=== PATIENT | female | born 1965 | race Caucasian/White ===

== ENCOUNTER 2021-09-09 17:51 | Inpatient (IN) ==
[2021-09-09] MEDS ORDERED: HYDROmorphone 2 MG/1 ML VIAL IV STA (21:15)
[2021-09-09] MEDS ORDERED: SODIUM CHLORIDE 0.9% 500 ML IV STA (21:15)
[2021-09-09] MEDS ORDERED: ALUM/MAG/SIMETH/LIDO VISC 1:1 30 ML BOTTLE PO STA (21:15)
[2021-09-09] MEDS ORDERED: PANTOPRAZOLE 40 MG VIAL IV STA (21:15)
[2021-09-09] MEDS ORDERED: ONDANSETRON 4 MG/2 ML VIAL IV STA (21:15)
[2021-09-09 21:44] LABS: Basophils % 0.4 % (0.0-0.8); Eosinophils # 0.3 10*3/uL (0.0-0.87); Eosinophils % 2.9 % (0.00-10.9); Hematocrit 39.1 VOL% (35.7-47.0); Hemoglobin 12.8 GM/DL (12.0-16.0); Immature Granulocytes % 0.3 %; Immature Granulocytes Absolute 0.03 #; Lymphocytes # 2.1 10*3/uL (1.4-4.0); Lymphocytes % 21.4 % (21.3-54.2); Mean Corpuscular HGB Conc 32.7 GM/DL (32-36); Mean Corpuscular Volume 87.9 FL (87-102); Mean Platelet Volume 9.9 FL (9.6-12.0); Monocytes % 8.5 % (1.7-12.7); Neutrophils % 66.5 % (38.7-73.9); Platelet Count 389 T/CUMM (130-400); Red Blood Count 4.45 MC/CUMM (3.8-5.5); Red Cell Distribution Width 12.3 % (9.3-17.3); White Blood Count 9.6 T/CUMM (4-12)
[2021-09-09 22:07] LABS: Alanine Aminotransferase 11 U/L (13-56); Alkaline Phosphatase 122 U/L (45-117); Amylase 26 U/L (25-115); Aspartate Amino Transferase 22 U/L (0-37); Bilirubin,Total < 0.39 MG/DL (0.20-1.00); Blood Urea Nitrogen 9 MG/DL (7-18); Calcium 9.3 MG/DL (8.5-10.1); Carbon Dioxide 28 MMOL/L (21-32); Estimated Glom Filtration Rate 113 ML/MIN; Glucose 121 MG/DL (74-106); Potassium 4.2 MMOL/L (3.5-5.1); Sodium 136 MMOL/L (136-145); Total Protein 8.1 G/DL (6.4-8.2)
[2021-09-09 22:11] LABS: Platelet Estimate Increased
[2021-09-09 22:33] LABS: Bacteria,Urine Occasional /HPF (Few); Bilirubin,Urine Negative (Negative); Blood, Urine Small mg/dL (Negative); Glucose,Urine (UA) Negative (Negative); Ketones,Urine 5 mg/dL (Negative); Mucus,Urine Occasional /LPF (Occasional); Nitrite,Urine Negative (Negative); Protein,Urine Negative; RBC,Urine 2 /HPF (0-4); Squamous Epithelial Cell,Urine Few /HPF (0-10); Urine Appearance Slightly Hazy (Clear); Urine Color Yellow (Yellow); Urine Specific Gravity 1.008 (1.001-1.035); Urine Urobilinogen < 2.0 EU/DL (<2.0)
[2021-09-10] MEDS ORDERED: KETOROLAC 30 MG/1 ML VIAL ONE (01:49)
[2021-09-10] MEDS ORDERED: ACETAMINOPHEN 325 MG TABLET PO PRN (02:51)
[2021-09-10] MEDS ORDERED: HYDROmorphone 2 MG/1 ML VIAL IV PRN (02:51)
[2021-09-10] MEDS ORDERED: ONDANSETRON 4 MG/2 ML VIAL IV PRN ×3 (02:51→15:33)
[2021-09-10] MEDS ORDERED: HYDROmorphone 2 MG/1 ML VIAL IV STA (02:52)
[2021-09-10] MEDS ORDERED: ONDANSETRON 4 MG/2 ML VIAL IV STA (02:52)
[2021-09-10] MEDS ORDERED: KETOROLAC 30 MG/1 ML VIAL IV STA (02:52)
[2021-09-10 03:43] LABS: Basophils % 0.4 % (0.0-0.8); Eosinophils # 0.4 10*3/uL (0.0-0.87); Eosinophils % 4.3 % (0.00-10.9); Hematocrit 34.5 VOL% (35.7-47.0); Hemoglobin 11.4 GM/DL (12.0-16.0); Immature Granulocytes % 0.4 %; Immature Granulocytes Absolute 0.03 #; Lymphocytes # 1.6 10*3/uL (1.4-4.0); Lymphocytes % 19.9 % (21.3-54.2); Mean Corpuscular Volume 88.2 FL (87-102); Monocytes % 9.9 % (1.7-12.7); Neutrophils % 65.1 % (38.7-73.9); Platelet Count 354 T/CUMM (130-400); Red Blood Count 3.91 MC/CUMM (3.8-5.5); Red Cell Distribution Width 12.3 % (9.3-17.3); White Blood Count 8.1 T/CUMM (4-12)
[2021-09-10 04:04] LABS: Alanine Aminotransferase 10 U/L (13-56); Albumin 2.9 G/DL (3.4-5.0); Alkaline Phosphatase 107 U/L (45-117); Aspartate Amino Transferase 21 U/L (0-37); Bilirubin,Total < 0.39 MG/DL (0.20-1.00); Blood Urea Nitrogen 8 MG/DL (7-18); Calcium 8.6 MG/DL (8.5-10.1); Carbon Dioxide 28 MMOL/L (21-32); Eosinophils 6 % (0-10); Estimated Glom Filtration Rate 113 ML/MIN; Glucose 112 MG/DL (74-106); Hypochromia 1+; Lymphocytes 17 % (20-55); Microcytosis 1+; Osmolality,Calculated 273.7 MOS/KG (273-304); Potassium 4.1 MMOL/L (3.5-5.1); Segmented Neutrophils 66 % (50-85); Sodium 138 MMOL/L (136-145); Total Cells Counted 100; Total Protein 6.8 G/DL (6.4-8.2)
[2021-09-10 04:05] LABS: Platelet Estimate Normal
[2021-09-10] MEDS: SODIUM CHLORIDE 0.9% 1,000 ML IV SCH ×2 (05:40→11:28)
[2021-09-10] MEDS: PIPERACILLIN/TAZOBACTAM 3,375 MG in SODIUM CHLORIDE 0.9% 100 ML IV SCH ×2 (05:58→15:37)
[2021-09-10] MEDS ORDERED: ERTAPENEM 1,000 MG in SODIUM CHLORIDE 0.9% 100 ML IV ONE (07:38)
[2021-09-10] MEDS ORDERED: PANTOPRAZOLE 40 MG TABLET PO SCH (09:00)
[2021-09-10] MEDS ORDERED: PANTOPRAZOLE 40 MG VIAL IV SCH (09:00)
[2021-09-10] MEDS: CLARITHROMYCIN 500 MG TABLET PO SCH ×2 (09:15→17:27)
[2021-09-10] MEDS: DICYCLOMINE 10 MG CAPSULE PO SCH ×2 (09:15→15:56)
[2021-09-10] MEDS: AMOXICILLIN 500 MG CAPSULE PO SCH ×2 (09:15→17:27)
[2021-09-10] MEDS ORDERED: ROCURONIUM 50 MG/5 ML VIAL IV ONE ×2 (10:31→13:28)
[2021-09-10] MEDS ORDERED: SUCCINYLCHOLINE 200 MG/10 ML VIAL ONE (10:31)
[2021-09-10] MEDS ORDERED: propofoL 200 MG/20 ML VIAL IV ONE (10:31)
[2021-09-10] MEDS ORDERED: ROPIVACAINE 0.5% 30 ML VIAL ONE (10:31)
[2021-09-10] MEDS ORDERED: SEVOFLURANE 1 UNIT/15 MINUTE INH ONE ×11 (10:31→13:28)
[2021-09-10] MEDS ORDERED: DEXAMETHASONE 4 MG/1 ML VIAL ONE ×2 (10:31)
[2021-09-10] MEDS ORDERED: LIDOCAINE 2% 5 ML VIAL ONE (10:31)
[2021-09-10] MEDS ORDERED: ONDANSETRON 4 MG/2 ML VIAL ONE (10:31)
[2021-09-10] MEDS ORDERED: LIDOCAINE 1% 5 ML VIAL ONE (10:31)
[2021-09-10] MEDS ORDERED: SUFentanil 50 MCG/ML AMP ONE (10:32)
[2021-09-10] MEDS ORDERED: MIDAZOLAM 2 MG/2 ML VIAL ONE (10:32)
[2021-09-10] MEDS ORDERED: ACETAMINOPHEN INJ 1,000 MG/100 ML VIAL IV ONE (10:36)
[2021-09-10] MEDS: LACTATED RINGERS 1,000 ML IV SCH ×3 (11:04→13:30)
[2021-09-10] MEDS ORDERED: INDOCYANINE GREEN 25 MG VIAL IV ONE (11:11)
[2021-09-10] MEDS ORDERED: ePHEDrine 50 MG/ML VIAL ONE (11:43)
[2021-09-10] MEDS ORDERED: LACTATED RINGERS 1,000 ML IV ONE ×2 (12:24→13:34)
[2021-09-10] MEDS ORDERED: NEOSTIGMINE 10 MG/10 ML VIAL ONE (13:35)
[2021-09-10] MEDS ORDERED: GLYCOPYRROLATE 0.4 MG/2 ML VIAL ONE (13:35)
[2021-09-10] MEDS ORDERED: TISSUE ADHESIVE 1 EACH APPLICATOR TOP ONE (13:44)
[2021-09-10 14:01] LABS: Bacteria,Urine Occasional /HPF (Few); Bilirubin,Urine Negative (Negative); Blood, Urine Negative (Negative); Glucose,Urine (UA) 50 mg/dL (Negative); Granular Casts,Urine 8 /LPF (0-1); Ketones,Urine 5 mg/dL (Negative); Nitrite,Urine Negative (Negative); Protein,Urine 30 MG/DL; Squamous Epithelial Cell,Urine Occasional /HPF (0-10); Urine Appearance CLOUDY (Clear); Urine Color Yellow (Yellow); Urine Specific Gravity 1.038 (1.001-1.035); Urine Urobilinogen < 2.0 EU/DL (<2.0)
[2021-09-10] MEDS: HYDROmorphone 2 MG/1 ML VIAL IV PRN ×4 (14:30→22:49)
[2021-09-10] MEDS ORDERED: LACTATED RINGERS 1,000 ML IV SCH (15:33)
[2021-09-10] MEDS: KETOROLAC 30 MG/1 ML VIAL IV SCH ×2 (15:55→20:56)
[2021-09-10 16:43] LABS: Basophils % 0.2 % (0.0-0.8); Eosinophils % 0.2 % (0.00-10.9); Hematocrit 32.8 VOL% (35.7-47.0); Hemoglobin 10.4 GM/DL (12.0-16.0); Immature Granulocytes % 0.6 %; Immature Granulocytes Absolute 0.06 #; Lymphocytes # 0.4 10*3/uL (1.4-4.0); Lymphocytes % 4.2 % (21.3-54.2); Mean Corpuscular HGB Conc 31.7 GM/DL (32-36); Mean Corpuscular Volume 90.4 FL (87-102); Mean Platelet Volume 10.4 FL (9.6-12.0); Monocytes % 2.2 % (1.7-12.7); Neutrophils % 92.6 % (38.7-73.9); Platelet Count 318 T/CUMM (130-400); Red Blood Count 3.63 MC/CUMM (3.8-5.5); Red Cell Distribution Width 12.3 % (9.3-17.3); White Blood Count 10.2 T/CUMM (4-12)
[2021-09-10 16:57] LABS: Calcium 8.2 MG/DL (8.5-10.1); Osmolality,Calculated 275.7 MOS/KG (273-304); Potassium 3.8 MMOL/L (3.5-5.1)
[2021-09-10 17:56] LABS: Lymphocytes 1 % (20-55); Segmented Neutrophils 99 % (50-85); Total Cells Counted 100
[2021-09-10 17:58] LABS: Microcytosis Slight; Platelet Estimate Normal
[2021-09-10] MEDS: ALVIMOPAN 12 MG CAPSULE PO SCH (20:56)
[2021-09-11] MEDS: KETOROLAC 30 MG/1 ML VIAL IV SCH ×2 (03:58→09:27)
[2021-09-11 05:07] LABS: Hematocrit 30.1 VOL% (35.7-47.0); Hemoglobin 9.8 GM/DL (12.0-16.0); Immature Granulocytes % 0.4 %; Immature Granulocytes Absolute 0.04 #; Lymphocytes # 0.8 10*3/uL (1.4-4.0); Lymphocytes % 8.7 % (21.3-54.2); Mean Corpuscular HGB Conc 32.6 GM/DL (32-36); Mean Corpuscular Volume 89.3 FL (87-102); Mean Platelet Volume 10.2 FL (9.6-12.0); Monocytes % 5.2 % (1.7-12.7); Neutrophils % 85.7 % (38.7-73.9); Platelet Count 296 T/CUMM (130-400); Red Blood Count 3.37 MC/CUMM (3.8-5.5); Red Cell Distribution Width 12.2 % (9.3-17.3); White Blood Count 9.5 T/CUMM (4-12)
[2021-09-11 05:26] LABS: Calcium 8.7 MG/DL (8.5-10.1); Osmolality,Calculated 268.2 MOS/KG (273-304); Potassium 4.3 MMOL/L (3.5-5.1)
[2021-09-11] MEDS: HYDROmorphone 2 MG/1 ML VIAL IV PRN ×2 (07:34→12:59)
[2021-09-11] MEDS ORDERED: ENOXAPARIN 40 MG/0.4 ML SYRINGE SUBCUT SCH (08:00)
[2021-09-11] MEDS: ALVIMOPAN 12 MG CAPSULE PO SCH (09:27)
[2021-09-11 12:58] VITALS: BP 102/62
== END 2021-09-11 15:55 | disposition home or self-care (01) | DRG 330 ==
LOC: N.ED 17:51 → N.EDINP 09-10 00:05 → N.TELES 09-10 03:35
PROVIDERS: ADMIT Surgery; ATTEND Surgery